=== PATIENT | male | born 2000 | race Caucasian/White ===

== ENCOUNTER 2020-04-30 05:19 | Emergency (ER) | payer OTHER ==
[~2020-04-30] VITALS: Ht 165.1 cm; Wt 76.7 kg
[2020-04-30 05:30] VITALS: BP 110/38
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
[2020-04-30 05:33] VITALS: BP 110/38
[2020-04-30] MEDS ORDERED: ONDANSETRON 4 MG ODT PO ONE (05:40)
--- NOTE | 2020-04-30 06:33 | NUR ---
PT RESTING WELL, NO SIGNS OF DISTRESS, BREATHING EVEN AND UNLABORED. SAFETY MEASURES IN PLACE.
[2020-04-30] MEDS ORDERED: AMMONIA AROMATIC 1 INHL INH ONE (06:51)
== END 2020-04-30 06:50 | disposition home or self-care (01) ==
LOC: MED 05:19
DX: R11.2 Nausea with vomiting, unspecified (principal); F10.129 Alcohol abuse with intoxication, unspecified; Y90.9 Presence of alcohol in blood, level not specified
CPT/HCPCS: 99283; Q0162